=== PATIENT | female | born 1950 | race African-American/Black ===

== ENCOUNTER 2016-07-09 23:15 | Emergency (ER) | payer OTHER ==
[~2016-07-09 23:15] MED LIST: ACET500CAP PO; ADOXA100 MG PO; AMIT25 PO; ANOROELLIPTA INH; ASABAYER PO; AT25 PO; CLARIT10 PO; DRISDOL50000 UNT PO; DULERA 200 MCG/13 GM INH; DULERA INH; EFFEXXR37 PO; EFFEXXR75 PO; FLONASE NAS; FLUOROMETHOL0.1 % OP; FORTAMET500 MG PO; GENERLAC PO; GGDM5ML PO; GLUCOPHAGE1000 MG PO; GLUCOPHXR PO; GLUCPH PO; GOODY'S EX-STR1 EAC1 PO; HUMI; HYDROCHLOROT25 MG PO; IBU800 PO; INHALER RX INH; IVVIBRA PO; KCL20UDL PO; KCL40UDL PO; LATUDA20 MG PO; LEVAQUIN750 MG; LEVAQUIN750 MG PO; LORTAB PO; MAGOX4 PO; METHOC750B PO; MUCINEX LIQUID PO; MUCINEX600 MG PO; NATURA2 OP; NORV5 PO; NYS500UDL PO; OTC ALLERGY TABLET PO; P1 PO; P10; P10 PO; P20; P20 PO; PRILOSEC40 MG PO; PROAIR HFA INH; PROMETHAZINE DM PO; PROTONIX PO; PROVENTSOL INH; REQUIP25 PO; RISP1 PO; RISP2 PO; SINGULAIR1 PO; SPIRIVA INH; SPIRIVA RESPIMAT INH; STERAPRED DS10 MG; SYMBICORT 160/41 INH INH; TESS PO; TESSALON200 MG PO; ULTRAM50 PO; VENTOLIN HFA INH; VIBRATAB100 MG PO; VIST25 PO; VITAMIN D PO; VITD PO; XYZAL5 MG PO; ZOCOR20 PO; [UNRECOGNIZED DRUG - REMARK] PO; [UNRECOGNIZED DRUG - REMARK] PO; oxygen
[2016-07-10 01:06] LABS: BASOPHILS 0.3 %; BASOPHILS ABSOLUTE 0.02 10/3/uL (0.0-0.16); EOSINOPHILS 12.2 %; EOSINOPHILS ABSOLUTE 0.73 10/3/uL (0.0-0.53); HEMATOCRIT 40.9 % (36.0-48.0); HEMOGLOBIN 13.9 g/dL (12.0-16.0); IMMATURE GRANULOCYTES 0.2 %; IMMATURE GRANULOCYTES ABSOLUTE 0.01 10/3/uL (0.0-0.11); LYMPHOCYTES 32.9 %; LYMPHOCYTES ABSOLUTE 1.97 10/3/uL (0.67-4.30); MEAN CORPUSCULAR HEMOGLOB 29.8 pg (26.0-34.0); MEAN CORPUSCULAR VOLUME 87.6 fL (80-100); MEAN PLATELET VOLUME 10.2 fL (9.2-13.0); MONOCYTES 10.9 %; MONOCYTES ABSOLUTE 0.65 10/3/uL (0.21-1.20); NEUTROPHILS 43.5 %; NEUTROPHILS ABSOLUTE 2.61 10/3/uL (2.02-8.40); PLATELET COUNT 352 10/3/uL (150-400); RBC DISTRIBUTION WIDTH 13.8 % (12.0-16.0); RED CELL COUNT 4.67 10/6/uL (4.0-5.6)
[2016-07-10 01:07] LABS: MANUAL DIFF NO %
[2016-07-10 01:11] LABS: PARTIAL THROMBO TIME 28.3 SEC (22.5-37.2)
[2016-07-10 01:19] LABS: CHEST PAIN PROFILE TAT 0 Hrs 30 Mins; CHLORIDE, SERUM 102 MMOL/L (96-112); CO2 (CARBON DIOXIDE) 28 MMOL/L (24-34); CREATININE 0.85 MG/DL (0.55-1.02); GFR AFRICAN AMERICAN 83 ML/MIN (>=60); GFR NON AFRICAN AMERICAN 71 ML/MIN (>=60); GLUCOSE, SERUM 99 MG/DL (60-99); POTASSIUM, SERUM 3.4 MMOL/L (3.5-5.3); SODIUM, SERUM 139 MMOL/L (135-148); TROPONIN I <0.02 NG/ML (<0.05)
[2016-07-10 01:20] LABS: BUN (BLOOD UREA NITROGEN) 9 MG/DL (6-23)
[2016-07-10 03:11] LABS: INFLUENZA A SCREEN NEGATIVE (NEGATIVE); INFLUENZA B SCREEN NEGATIVE (NEGATIVE)
== END 2016-07-10 04:10 | disposition home or self-care (01) ==
LOC: ER 23:15
PROVIDERS: Emergency Medicine; Nurse Practitioner
DX: J44.1 Chronic obstructive pulmonary disease with (acute) exacerbation (principal); E87.6 Hypokalemia; M79.1 Myalgia; F32.9 Major depressive disorder, single episode, unspecified; E11.9 Type 2 diabetes mellitus without complications; Z87.01 Personal history of pneumonia (recurrent); Z88.0 Allergy status to penicillin; Z88.1 Allergy status to other antibiotic agents; Z79.52 Long term (current) use of systemic steroids; Z79.82 Long term (current) use of aspirin; Z79.899 Other long term (current) drug therapy
CPT/HCPCS: 71020; 80048; 83735; 84484; 85025; 85610; 85730; 87804 ×2; 93005; 94640 ×2; 96372; 99285; J2930; A9270-GY

== ENCOUNTER 2016-08-17 22:47 | Inpatient (IN) | payer OTHER ==
--- NOTE | ~2016-08-17 | HP ---
History And Physical [place] [id number] [facility] [place]. [address] NAME: DEAN EVERETT : 48 STATUS : ADM IN [facility]#: [id number] AGE: 66 ADM/REG DATE : 08/18/16 MR#: [id number] REPORT SERV DATE: 08/18/16 DICTATED BY: ADAL LITTLE DATE: 08/18/16 REPORT STATUS : Draft TRANSCRIBED BY: MODClaribel DATE: 08/18/16 DATE OF ADMISSION: 08/18/2016 POINT OF ENTRY: [facility]. PRIMARY TIGHT COOPER: Kevin Birmingham M.D. CHIEF COMPLAINT: Shortness of breath, cough, wheezing. HISTORY OF PRESENT ILLNESS: Ms Everett is a 66-year-old female with a history of COPD on 2 L nocturnal oxygen as well as obstructive sleep apnea, on CPAP therapy, evidence of cor pulmonale as well as hypertension, zdi-hmurizw-buxphdmqh diabetes mellitus type 2, who presents to the emergency department with a three-week history of progressive worsening, cough, wheezing, as well as shortness of breath. The patient was recently admitted to the Hospitalist Service in April 2016, for acute COPD exacerbation. She states over the past three weeks she has had progressive worsening symptoms of cough, wheezing, sputum production, and shortness of breath. She also reports some subjective fevers, as well as chills. Denies any saturnino chest pain, abdominal pain, nausea, vomiting, or bleeding. She has not seen any of her primary care doctor or detention attendant during this three-week period. Initial evaluation in the emergency department notable for stable vital signs. There was mild tachycardia on admission. Chest x-ray concerning for right lower lobe and possible right middle lobe infiltrate versus atelectasis. She was given steroids and breathing treatments, but still was very wheezy and tight, and therefore was admitted to the Hospitalist Service for further evaluation and management. REVIEW OF SYSTEMS: Comprehensive review of systems otherwise negative unless listed in history of present illness. PREVIOUS MEDICAL HISTORY: 1. COPD, on 2 L nocturnal oxygen. 2. Obstructive sleep apnea, on CPAP therapy. 3. Cor pulmonale. 4. Hypertension. 5. Restless legs syndrome. 6. Bipolar disease. 7. Zqa-crqhaar-dikxobmnu diabetes mellitus type 2. SURGICAL HISTORY: 1. Appendectomy. 2. Tonsillectomy. History And Physical [place] [address] [place]. [address] NAME: DEAN EVERETT : [birth year] STATUS : ADM IN [facility]#: [id number] AGE: 66 ADM/REG DATE : 08/18/16 MR#: [id number] REPORT SERV DATE: 08/18/16 DICTATED BY: ADAL LITTLE DATE: 08/18/16 REPORT STATUS : Draft TRANSCRIBED BY: YOUSIF DATE: 08/18/16 3. Bilateral hip replacement. 4. Left oophorectomy. 5. Right foot surgery. 6. Right hand surgery. ALLERGIES: TO PENICILLIN, CEPHALOSPORINS, AMOXICILLIN, AND CARBAPENEMS. HOME MEDICATIONS: 1. DuoNeb one nebulization q.4 hours p.r.n. 2. Norvasc 5 mg daily. 3. Aspirin 325 mg daily. 4. Symbicort two puffs inhalation b.i.d. 5. Vitamin D 1,000 units daily. 6. Flonase one spray nasal daily. 7. Hydrochlorothiazide 25 mg daily. 8. Lactulose daily. 9. Xyzal 5 mg daily. 10.Glucophage 1000 mg b.i.d. 11.Singulair 10 mg daily. 12.Risperdal 1 mg q.h.s. 13.Simvastatin 20 mg q.h.s. 14.Spiriva one cap inhalation daily. 15.Effexor 75 mg daily. SOCIAL HISTORY: Denies any tobacco, alcohol, or illicits. She is a former smoker, quit about nine years ago. FAMILY MEDICAL HISTORY: Mother healthy into her old age and seems to be age of 94. Father of complications of COPD. Siblings with COPD. LABS AND IMAGIN. White count is 7.8, hemoglobin is 14.1, hematocrit is 42.3, platelet count is 344, and INR is 1.0. 2. Sodium is 138, potassium 5.3, chloride 106, carbon dioxide 23, BUN 10, creatinine 0.91, glucose is 88, calcium is 9.2, and magnesium is 2.1. 3. Troponin less than 0.02. BNP is 21.0. 4. Chest x-ray per my review shows hyperinflation with flattened diaphragms as well as cardiomegaly with right lower and right middle lobe infiltrate versus atelectasis. 5. EKG per my review shows sinus tachycardia with no evidence of any acute ischemia or infarction. No T-wave changes as well. PHYSICAL EXAMINATION: VITAL SIGNS: Temperature is 97.8 degrees Fahrenheit, pulse is 116, respirations 22, saturating 94% on room air, and blood pressure is 119/79. GENERAL: The patient is awake and alert, in no acute distress. Resting comfortably in bed. She is a well-developed, well-nourished, elderly female. HEENT: Atraumatic and normocephalic. Moist mucous membranes. Pupils equal, round, reactive History And Physical [address] [address] NAME: DEAN EVERETT : [birth year] STATUS : ADM IN [facility]#: [id number] AGE: 66 ADM/REG DATE : 08/18/16 MR#: [id number] REPORT SERV DATE: 08/18/16 DICTATED BY: ADAL LITTLE DATE: 08/18/16 REPORT STATUS : Draft TRANSCRIBED BY: YOUSIF DATE: 08/18/16 to light and accommodation. Extraocular eye movements are intact. No scleral icterus. NECK: No jugular venous distention or carotid bruits. CARDIAC: Tachycardic rate, regular rhythm. No murmurs, rubs, or gallops. Normal S1, normal S2. LUNGS: She is on oxygen, but in no respiratory distress, but is extremely tight with limited air movement and diffuse inspiratory and expiratory wheezes in all lung kaye. ABDOMEN: Soft, nontender, and nondistended. Good bowel sounds. No rebound, guarding, or rigidity. EXTREMITIES: Warm and perfused. No cyanosis, clubbing, or edema. SKIN: Warm and dry. PSYCH: Affect appropriate. NEURO: Alert and oriented x3. Cranial nerves 2 through 12 grossly intact. Speech is normal. Gait not assessed. ASSESSMENT AND PLAN: Ms Everett is a 66-year-old female with history of chronic obstructive pulmonary disease and multiple admissions in the past for such, who presents with a three- week history of progressive worsening cough, wheezing, shortness of breath, and found to have evidence of acute chronic obstructive pulmonary disease exacerbation as well as possible right-sided pneumonia. PROBLEM LIST: 1. Acute COPD exacerbation. 2. Right middle lobe and right lower lobe pneumonia. 3. Hyperkalemia. 4. Qwx-xaytwgd-pxlxietxx diabetes mellitus type 2. 5. Hypertension. PLAN: 1. Acute COPD exacerbation. Given the patient is still fairly tight and wheezy after nebs and steroids here in the emergency department, we will place her on high-dose steroids, Levaquin, and frequent bronchodilators. 2. Right middle versus right lower lobe pneumonia. Blood cultures have been obtained. Obtain sputum culture as well as urinary antigens. Provide IV antibiotics. 3. Hyperkalemia. Holding nephrotoxic medications. No EKGs at this time. We will place on cardiac telemetry monitoring. Give her a single dose of Kayexalate as well as some IV fluids to bring this down. 4. Nkj-qyqjehb-teneozaqh diabetes mellitus type 2. Holding metformin. Place her on level 2 sliding scale. 5. DVT prophylaxis. Lovenox subcu. CODE STATUS: The patient wished to be full code. COLBY/YOUSIF Adal Lucia History And Physical [address] [address] NAME: DEAN EVERETT : [birth year] STATUS : ADM IN [facility]#: [id number] AGE: 66 ADM/REG DATE : 08/18/16 MR#: [id number] REPORT SERV DATE: 08/18/16 DICTATED BY: ADAL LITTLE DATE: 08/18/16 REPORT STATUS : Draft TRANSCRIBED BY: YOUSIF DATE: 08/18/16 MD Kelsea / [id number] CC: Pema Mazariegos MD Winfred Manda, M.D.
--- NOTE | ~2016-08-17 | DS ---
Discharge Summary [place] [address] [address] [facility] [place]. [address] NAME: DEAN EVERETT : 48 STATUS : DIS IN PAT#: [id number] AGE: 66 ADM/REG DATE : 08/18/16 MR#: [id number] REPORT SERV DATE: 08/22/16 DICTATED BY: AYE ESTEVEZ DATE: 08/21/16 REPORT STATUS : Draft TRANSCRIBED BY: YOUSIF DATE: 08/21/16 ADMISSION DATE: 08/18/2016 DISCHARGE DATE: 08/21/2016 ELECTRONIC WARFARE LINGUIST: Kevin Birmingham M.D. FINAL DIAGNOSES: 1. Chronic obstructive pulmonary disease exacerbation. 2. Obstructive sleep apnea. 3. Cor pulmonale history. 4. Hypertension. 5. Diabetes. 6. Status post hyperkalemia. 7. Restless legs syndrome. 8. Bipolar. DIAGNOSTIC EXAM: Chest x-ray showing no acute process. HOSPITAL COURSE: Please refer to the H and P done by Dr. Enamorado dated on 08/18/2016. Briefly, this is a 66-year-old female with a history of COPD on 2 L of oxygen at night and p.r.n. during the day as well as obstructive sleep apnea on CPAP. The patient has been having 3-week history of progressive shortness of breath, wheezing, and went to the emergency room. She was diagnosed with COPD exacerbation, started on steroids, inhalers, and she slowly improved. The patient initially was needing 2 L of oxygen all the time, but on discharge, she was able to walk on room air with a saturation of 91%, and it goes up to 94% on 2 L. She said that she feels much better, however, she would want some pain medications for her muscle pain. She said that the Flexeril and the Percocet is helping, and I will give her a week supply of that one. The patient will follow up with her PCP, Dr. Iraida Reveles and her child care cook, Dr. Kevin Birmingham in one to two weeks and one month respectively. This has been explained to the patient and she agreed and understood the plan. MEDICATIONS: Norvasc 5 mg a day, aspirin 325 mg a day, vitamin D 1000 units a day, Flonase one spray per nostril a day, Tessalon Perles 100 mg three times a day p.r.n. cough, Mucinex 600 mg p.o. b.i.d., hydrochlorothiazide 25 mg a day, lactulose 15 a day, Xyzal 5 mg a day, Singulair 10 mg a day, Risperdal 1 mg at bedtime, Zocor 20 mg at bedtime, Spiriva one capsule a day, Effexor XR 75 mg a day, metformin 1000 mg twice a day, Symbicort 2 puffs twice a day, DuoNeb inhaled as needed, and she will get a prescription for Flexeril 5 mg p.o. t.i.d. p.r.n. muscle spasm and Percocet 5/325 p.o. t.i.d. p.r.n. pain. This has been explained to the patient, and she agreed and understood the plan. OTIS/YOUSIF Aye [facility] Discharge Summary [address] [address] NAME: DEAN EVERETT : 48 STATUS : DIS IN PAT#: [id number] AGE: 66 ADM/REG DATE : 08/18/16 MR#: [id number] REPORT SERV DATE: 08/22/16 DICTATED BY: AYE ESTEVEZ DATE: 08/21/16 REPORT STATUS : Draft TRANSCRIBED BY: YOUSIF DATE: 08/21/16 Pema Estevez / [id number] CC: Pema Mazariegos MD
[2016-08-17 22:53] LABS: BASOPHILS 0.3 %; BASOPHILS ABSOLUTE 0.02 10/3/uL (0.0-0.16); EOSINOPHILS 15.2 %; EOSINOPHILS ABSOLUTE 1.18 10/3/uL (0.0-0.53); ER CBC TAT 0 Hrs 08 Mins; HEMATOCRIT 42.3 % (36.0-48.0); HEMOGLOBIN 14.1 g/dL (12.0-16.0); IMMATURE GRANULOCYTES 0.3 %; IMMATURE GRANULOCYTES ABSOLUTE 0.02 10/3/uL (0.0-0.11); LYMPHOCYTES 38.5 %; LYMPHOCYTES ABSOLUTE 2.99 10/3/uL (0.67-4.30); MANUAL DIFF NO %; MEAN CORPUS HGB CONC 33.3 g/dL (32.0-36.0); MEAN CORPUSCULAR HEMOGLOB 29.4 pg (26.0-34.0); MEAN CORPUSCULAR VOLUME 88.1 fL (80-100); MEAN PLATELET VOLUME 10.1 fL (9.2-13.0); MONOCYTES 10.4 %; MONOCYTES ABSOLUTE 0.81 10/3/uL (0.21-1.20); NEUTROPHILS 35.3 %; NEUTROPHILS ABSOLUTE 2.74 10/3/uL (2.02-8.40); PLATELET COUNT 344 10/3/uL (150-400); RBC DISTRIBUTION WIDTH 13.5 % (12.0-16.0); WHITE BLOOD CELLS 7.8 10/3/uL (4.5-10.5)
[2016-08-17 23:01] LABS: PARTIAL THROMBO TIME 28.7 SEC (22.5-37.2)
[2016-08-17 23:13] LABS: BUN (BLOOD UREA NITROGEN) 10 MG/DL (6-23); CALCIUM, SERUM 9.2 MG/DL (8.5-10.4); CHEST PAIN PROFILE TAT 0 Hrs 28 Mins; CHLORIDE, SERUM 106 MMOL/L (96-112); CREATININE 0.91 MG/DL (0.55-1.02); GFR AFRICAN AMERICAN 76 ML/MIN (>=60); GFR NON AFRICAN AMERICAN 65 ML/MIN (>=60); GLUCOSE, SERUM 88 MG/DL (60-99); SODIUM, SERUM 138 MMOL/L (135-148); TROPONIN I <0.02 NG/ML (<0.05)
[2016-08-17 23:15] LABS: CO2 (CARBON DIOXIDE) 23 MMOL/L (24-34); POTASSIUM, SERUM 5.3 MMOL/L (3.5-5.3)
[2016-08-18] MEDS ORDERED: GLUCOPHAGE1000 MG PO (00:04)
[2016-08-18] MEDS ORDERED: DUONEB INH (00:05)
[2016-08-18] MEDS ORDERED: VITAMIN D1000 UNI1 PO (00:06)
[2016-08-18] MEDS ORDERED: CONSTULOSE PO (00:08)
[2016-08-18] MEDS ORDERED: FLONASE NAS (00:09)
[2016-08-18 06:09] LABS: BASOPHILS 0.1 %; BASOPHILS ABSOLUTE 0.01 10/3/uL (0.0-0.16); EOSINOPHILS 0.1 %; EOSINOPHILS ABSOLUTE 0.01 10/3/uL (0.0-0.53); HEMATOCRIT 40.4 % (36.0-48.0); HEMOGLOBIN 13.5 g/dL (12.0-16.0); IMMATURE GRANULOCYTES 0.3 %; IMMATURE GRANULOCYTES ABSOLUTE 0.02 10/3/uL (0.0-0.11); LYMPHOCYTES 12.7 %; LYMPHOCYTES ABSOLUTE 0.89 10/3/uL (0.67-4.30); MANUAL DIFF NO %; MEAN CORPUS HGB CONC 33.4 g/dL (32.0-36.0); MEAN CORPUSCULAR HEMOGLOB 29.5 pg (26.0-34.0); MEAN CORPUSCULAR VOLUME 88.4 fL (80-100); MEAN PLATELET VOLUME 10.5 fL (9.2-13.0); MONOCYTES 1.1 %; MONOCYTES ABSOLUTE 0.08 10/3/uL (0.21-1.20); NEUTROPHILS 85.7 %; NEUTROPHILS ABSOLUTE 5.98 10/3/uL (2.02-8.40); PLATELET COUNT 333 10/3/uL (150-400); RBC DISTRIBUTION WIDTH 13.5 % (12.0-16.0); RED CELL COUNT 4.57 10/6/uL (4.0-5.6)
[2016-08-18 06:20] LABS: BUN (BLOOD UREA NITROGEN) 13 MG/DL (6-23); CHLORIDE, SERUM 101 MMOL/L (96-112); CO2 (CARBON DIOXIDE) 25 MMOL/L (24-34); CREATININE 1.28 MG/DL (0.55-1.02); GFR AFRICAN AMERICAN 50 ML/MIN (>=60); GFR NON AFRICAN AMERICAN 43 ML/MIN (>=60); SODIUM, SERUM 137 MMOL/L (135-148)
[2016-08-18 06:22] LABS: GLUCOSE, SERUM 154 MG/DL (60-99); POTASSIUM, SERUM 3.9 MMOL/L (3.5-5.3)
[2016-08-19 07:23] LABS: BUN (BLOOD UREA NITROGEN) 14 MG/DL (6-23); CALCIUM, SERUM 9.2 MG/DL (8.5-10.4); CHLORIDE, SERUM 100 MMOL/L (96-112); CO2 (CARBON DIOXIDE) 31 MMOL/L (24-34); GFR AFRICAN AMERICAN 60 ML/MIN (>=60); GFR NON AFRICAN AMERICAN 52 ML/MIN (>=60); GLUCOSE, SERUM 176 MG/DL (60-99); POTASSIUM, SERUM 3.9 MMOL/L (3.5-5.3); SODIUM, SERUM 139 MMOL/L (135-148)
[2016-08-21] MEDS ORDERED: TESS PO (09:35)
[2016-08-21] MEDS ORDERED: MUCINEX600 MG PO (09:36)
[2016-08-21] MEDS ORDERED: FLEXERIL5 MG PO (09:39)
[2016-08-21] MEDS ORDERED: PCET PO (09:40)
== END 2016-08-21 16:08 | disposition home or self-care (01) | DRG 189 ==
LOC: ER 22:47 → 2SO 08-18 01:33
PROVIDERS: Emergency Medicine; Internal Medicine
DX: J96.21 Acute and chronic respiratory failure with hypoxia (principal); I27.81 Cor pulmonale (chronic); Z99.81 Dependence on supplemental oxygen; J44.1 Chronic obstructive pulmonary disease with (acute) exacerbation; G47.33 Obstructive sleep apnea (adult) (pediatric); I10 Essential (primary) hypertension; E11.9 Type 2 diabetes mellitus without complications; G25.81 Restless legs syndrome; F31.9 Bipolar disorder, unspecified; Z98.890 Other specified postprocedural states; Z88.0 Allergy status to penicillin; Z88.1 Allergy status to other antibiotic agents; Z88.8 Allergy status to other drugs, medicaments and biological substances; E87.5 Hyperkalemia; J45.909 Unspecified asthma, uncomplicated; Z96.643 Presence of artificial hip joint, bilateral
CPT/HCPCS: 71010; 80048; 82962; 83036; 83735; 83880; 84484; 85025; 85610; 85730; 87040; 87449; 93005; 94640; 94667; 94668; 96374; 96375; 99285; A9270-GY; J1170; J1956; J2405; J2930

== ENCOUNTER 2016-09-02 16:23 | Emergency (ER) | payer OTHER ==
[~2016-09-02 16:23] MED LIST changes: +CONSTULOSE PO; +DUONEB INH; +FLEXERIL5 MG PO; +PCET PO; +VITAMIN D1000 UNI1 PO
== END 2016-09-02 16:50 | disposition home or self-care (01) ==
LOC: ER 16:23
DX: M54.30 Sciatica, unspecified side (principal); Z88.0 Allergy status to penicillin; Z88.1 Allergy status to other antibiotic agents; Z79.82 Long term (current) use of aspirin; Z98.890 Other specified postprocedural states
CPT/HCPCS: 96372; 99283; J1170

== ENCOUNTER 2016-09-17 13:25 | Emergency (ER) | payer OTHER | END 2016-09-17 15:10 | disposition home or self-care (01) | LOC: ER 13:25 | DX: M54.42 Lumbago with sciatica, left side (principal); I10 Essential (primary) hypertension; J44.9 Chronic obstructive pulmonary disease, unspecified; F31.9 Bipolar disorder, unspecified; G47.30 Sleep apnea, unspecified; E11.9 Type 2 diabetes mellitus without complications; Z87.891 Personal history of nicotine dependence; Z88.0 Allergy status to penicillin; Z88.1 Allergy status to other antibiotic agents; Z88.8 Allergy status to other drugs, medicaments and biological substances; Z79.82 Long term (current) use of aspirin; Z79.84 Long term (current) use of oral hypoglycemic drugs | CPT/HCPCS: 96372; 99283; J1170 ==